=== PATIENT | male | born 1950 | race Caucasian/White ===

== ENCOUNTER 2019-09-16 09:47 | Day surgery (SDC) | payer OTHER ==
[~2019-09-16] VITALS: Ht 175.3 cm; Wt 107.0 kg
[~2019-09-16 09:47] MED LIST: CARV25 PO; FLUO10 PO; GABA300 PO; GLIP5 PO; IBUP800 PO; INSULANPEN SC; METF500 PO; NITR.4SL SL; OMEPRAZOLE20 MG PO; TERA5 PO; TRULICITY1.5 MG/0.5 SC; ZESTORETIC 20-1 EACH PO; Zocor20 MG PO
--- NOTE | 2019-09-16 11:27 | NUR ---
Pt with two rings removed by patient and given to his daughter Kassandra.
--- NOTE | 2019-09-16 15:30 | NUR ---
PT AMBULATES TO AND FROM RESTROOM WITHOUT DIFF. R RADIAL SITE REMAINS CLEAR. VSS. NADN. CALL LIGHT WITHIN REACH.
--- NOTE | 2019-09-16 15:34 | NUR ---
PT AND FAMILY VERBALIZES UNDERSTANDING WRITTEN AND VERBAL ORDERS. VSS. NADN. PT DENIES NEEDS.
--- NOTE | 2019-09-16 16:15 | NUR ---
ATTEMPTED TO DEFLATE AIR FROM TR BAND, HOWEVER BLED. REINFLATED TR BAND. NO BLEEDING OR HEMATOMA NOTED. VSS. FRIAS. FULL REPORT TO COLLEEN KENDRICK RN TO ASSUME CARE.
--- NOTE | 2019-09-16 17:49 | NUR ---
DISCHARGE INSTRUCTIONS RE-ENFORCED. PT AND FAMILY BOTH VERBALIZE UNDERSTANDING. CLOTH DOT PLACED RIGHT RADIAL SITE. SITE WITHOUT BLEEDING, HEMATOMA, AND IS NON-TENDER. SALINE LOCK TAKEN OUT WITH CATHETER INTACT. PT TO PRIVATE VEHICLE PER W/C WITH ONE STAFF.
== END 2019-09-16 17:45 | disposition home or self-care (01) ==
LOC: MHTC 09:47
DX: I25.10 Atherosclerotic heart disease of native coronary artery without angina pectoris (principal); I10 Essential (primary) hypertension; E78.5 Hyperlipidemia, unspecified; E11.9 Type 2 diabetes mellitus without complications; K21.9 Gastro-esophageal reflux disease without esophagitis; F32.9 Major depressive disorder, single episode, unspecified; M54.30 Sciatica, unspecified side; F43.10 Post-traumatic stress disorder, unspecified; E66.9 Obesity, unspecified; Z68.34 Body mass index [BMI] 34.0-34.9, adult; Z88.8 Allergy status to other drugs, medicaments and biological substances; Z79.84 Long term (current) use of oral hypoglycemic drugs; Z79.899 Other long term (current) drug therapy; Z87.891 Personal history of nicotine dependence
CPT/HCPCS: 76937; 82947; 93454; 99152; C1769; C1894; J1644; J2250; J3010; J7030; Q9967

== ENCOUNTER 2024-11-17 12:45 | Emergency (ER) | payer OTHER ==
[~2024-11-17] VITALS: Ht 172.7 cm; Wt 90.7 kg
[2024-11-17] MEDS ORDERED: DILT120 PO (13:04)
[2024-11-17 13:46] LABS: BASOPHILS ABSOLUTE AUTO 0.04 K/mm3 (0.00-0.23); BASOPHILS PERCENT AUTO 1 % (0-2); EOSINOPHILS ABSOLUTE AUTO 0.41 K/mm3 (0.00-0.68); EOSINOPHILS PERCENT AUTO 5 % (0-6); Hemoglobin 11.8 g/dL (13.5-17.5); IMMATURE GRAN ABSOLUTE AUTO 0.02 K/mm3 (0.00-0.10); IMMATURE GRAN PERCENT AUTO 0 % (0-1); LYMPHOCYTES PERCENT AUTO 39 % (21-46); MONOCYTES ABSOLUTE AUTO 0.54 K/mm3 (0.16-1.47); MONOCYTES PERCENT AUTO 6 % (4-13); Mean Corpuscular HGB 31.4 pg (26.0-34.0); Mean Corpuscular HGB Conc 35.8 g/dL (31.5-36.5); Mean Corpuscular Volume 88 fL (80-100); Mean Platelet Volume 9.3 fL (9.1-12.4); NEUTROPHILS ABSOLUTE AUTO 4.34 K/mm3 (1.96-9.15); NEUTROPHILS PERCENT AUTO 50 % (41-73); Platelet Count 202 K/mm3 (150-400); RDW Coefficient Variation 11.9 % (11.7-14.2); RDW Standard Deviation 38.3 fL (35.1-46.3); Red Blood Cell Count 3.76 M/mm3 (4.30-5.90); White Blood Cell Count 8.75 K/mm3 (4.00-11.30)
[2024-11-17 14:09] LABS: Albumin, Blood 3.4 g/dL (3.4-5.0); Bilirubin, Total 0.4 mg/dL (0.1-1.0); Bun/Creatinine Ratio 12.4 (12.0-20.0); Calcium, Blood 9.6 mg/dL (8.5-10.1); Creatinine, Blood 1.05 mg/dL (0.60-1.20); Globulin, Blood 3.3 g/dL (2.2-4.0); Total Protein, Blood 6.7 g/dL (6.4-8.2)
[2024-11-17] MEDS ORDERED: Potassium Chloride 20 MEQ/15 ML UDC PO ONE (15:25)
[2024-11-17] MEDS ORDERED: Ondansetron HCl 2 MG / ML 2ML Vial IV ONE (15:25)
[2024-11-17 16:20] VITALS: BP 118/71
== END 2024-11-17 16:25 | disposition home or self-care (01) ==
LOC: ER 12:45
PROVIDERS: Emergency Medicine
DX: R55 Syncope and collapse (principal); I10 Essential (primary) hypertension; E11.40 Type 2 diabetes mellitus with diabetic neuropathy, unspecified; K21.9 Gastro-esophageal reflux disease without esophagitis; Z88.8 Allergy status to other drugs, medicaments and biological substances; Z79.84 Long term (current) use of oral hypoglycemic drugs; Z79.4 Long term (current) use of insulin; Z79.899 Other long term (current) drug therapy; Z87.891 Personal history of nicotine dependence
CPT/HCPCS: 80053; 85025; 93005; 93010; 99284-25; A9270; J2405

== ENCOUNTER 2024-12-08 18:13 | Emergency (ER) | payer OTHER ==
[~2024-12-08] VITALS: Ht 172.7 cm; Wt 95.2 kg
[~2024-12-08 18:13] MED LIST changes: +DILT120 PO
[2024-12-08 18:54] LABS: BASOPHILS ABSOLUTE AUTO 0.03 K/mm3 (0.00-0.23); BASOPHILS PERCENT AUTO 0 % (0-2); EOSINOPHILS ABSOLUTE AUTO 0.67 K/mm3 (0.00-0.68); EOSINOPHILS PERCENT AUTO 7 % (0-6); Hematocrit 34.8 % (37.0-53.0); Hemoglobin 12.3 g/dL (13.5-17.5); IMMATURE GRAN ABSOLUTE AUTO 0.03 K/mm3 (0.00-0.10); IMMATURE GRAN PERCENT AUTO 0 % (0-1); LYMPHOCYTES ABSOLUTE AUTO 4.27 K/mm3 (0.84-5.20); LYMPHOCYTES PERCENT AUTO 43 % (21-46); MONOCYTES ABSOLUTE AUTO 0.66 K/mm3 (0.16-1.47); MONOCYTES PERCENT AUTO 7 % (4-13); Mean Corpuscular HGB 31.5 pg (26.0-34.0); Mean Corpuscular HGB Conc 35.3 g/dL (31.5-36.5); Mean Corpuscular Volume 89 fL (80-100); Mean Platelet Volume 8.6 fL (9.1-12.4); NEUTROPHILS ABSOLUTE AUTO 4.28 K/mm3 (1.96-9.15); NEUTROPHILS PERCENT AUTO 43 % (41-73); Platelet Count 225 K/mm3 (150-400); RDW Coefficient Variation 12.3 % (11.7-14.2); RDW Standard Deviation 39.5 fL (35.1-46.3); White Blood Cell Count 9.94 K/mm3 (4.00-11.30)
[2024-12-08 19:10] LABS: Albumin, Blood 3.3 g/dL (3.4-5.0); Albumin/Globulin Ratio 1.1 (0.8-1.8); Bilirubin, Total 0.3 mg/dL (0.1-1.0); Bun/Creatinine Ratio 14.4 (12.0-20.0); Calcium, Blood 9.7 mg/dL (8.5-10.1); Creatinine, Blood 1.11 mg/dL (0.60-1.20); Globulin, Blood 3.1 g/dL (2.2-4.0); Potassium, Blood 3.6 mmol/L (3.5-5.5); Total Protein, Blood 6.4 g/dL (6.4-8.2)
[2024-12-08] MEDS ORDERED: INSULANI SC (19:13)
[2024-12-08] MEDS ORDERED: PANT40 (19:15)
[2024-12-08] MEDS ORDERED: CLOP75 PO (19:16)
[2024-12-08 21:27] VITALS: BP 116/66
== END 2024-12-08 21:26 | disposition home or self-care (01) ==
LOC: ER 18:13
PROVIDERS: Student in an Organized Health Care Education/Training Program
DX: R55 Syncope and collapse (principal); Z88.5 Allergy status to narcotic agent; Z79.4 Long term (current) use of insulin; Z79.84 Long term (current) use of oral hypoglycemic drugs; Z79.899 Other long term (current) drug therapy; Z87.891 Personal history of nicotine dependence
CPT/HCPCS: 70450; 72125; 80053; 85025; 93005; 93010; 99284-25

== ENCOUNTER 2025-09-26 21:04 | Emergency (ER) | payer OTHER ==
[~2025-09-26] VITALS: Ht 172.7 cm; Wt 104.3 kg
[~2025-09-26 21:04] MED LIST changes: +CLOP75 PO; +INSULANI SC; +PANT40
[2025-09-26] MEDS ORDERED: Ondansetron HCl 2 MG / ML 2ML Vial IV ONE (21:40)
[2025-09-26 22:03] LABS: BASOPHILS ABSOLUTE AUTO 0.07 K/mm3 (0.00-0.23); BASOPHILS PERCENT AUTO 1 % (0-2); EOSINOPHILS ABSOLUTE AUTO 0.20 K/mm3 (0.00-0.68); EOSINOPHILS PERCENT AUTO 3 % (0-6); Hematocrit 38.7 % (37.0-53.0); Hemoglobin 13.6 g/dL (13.5-17.5); IMMATURE GRAN ABSOLUTE AUTO 0.01 K/mm3 (0.00-0.10); IMMATURE GRAN PERCENT AUTO 0 % (0-1); LYMPHOCYTES ABSOLUTE AUTO 1.82 K/mm3 (0.84-5.20); LYMPHOCYTES PERCENT AUTO 25 % (21-46); MONOCYTES ABSOLUTE AUTO 0.31 K/mm3 (0.16-1.47); MONOCYTES PERCENT AUTO 4 % (4-13); Mean Corpuscular HGB Conc 35.1 g/dL (31.5-36.5); Mean Corpuscular Volume 89 fL (80-100); NEUTROPHILS ABSOLUTE AUTO 4.79 K/mm3 (1.96-9.15); NEUTROPHILS PERCENT AUTO 67 % (41-73); NRBC ABSOLUTE 0.00 K/mm3 (0.00-0.02); NRBC Auto 0.0 /100 WBC (0.0-0.2); Platelet Count 216 K/mm3 (150-400); RDW Coefficient Variation 11.8 % (11.7-14.2); RDW Standard Deviation 38.3 fL (35.1-46.3)
[2025-09-26 22:11] LABS: Source, Urine Clean Catch
[2025-09-26 22:14] LABS: Bilirubin, Urine Neg (Neg); Glucose Qualitative, Urine 4+ (Neg); Ketones, Urine Neg (Neg); Leukocyte Esterase, Urine 1+ (Neg); Protein, Urine Neg (Neg); Specific Gravity, Urine 1.010 (1.003-1.022); Urobilinogen, Urine NORM (Normal)
[2025-09-26] MEDS ORDERED: Crestor40 MG PO (22:20)
[2025-09-26] MEDS ORDERED: DULO60 PO (22:21)
[2025-09-26] MEDS ORDERED: PIOG15 PO (22:21)
[2025-09-26] MEDS ORDERED: ERGO400 PO (22:21)
[2025-09-26 22:22] LABS: Color, Urine Yellow (P-Yellow)
[2025-09-26 22:24] LABS: Red Blood Cells, Urine Not Seen /hpf (0-2)
[2025-09-26 22:41] LABS: Magnesium, Blood 1.7 mg/dL (1.6-2.4); Thyroid Stimulating Hormone 0.419 uIU/mL (0.360-4.800)
[2025-09-26 22:49] LABS: Alanine Aminotransfer (ALT/SGP 34.0 U/L (12-78); Albumin, Blood 3.6 g/dL (3.4-5.0); Albumin/Globulin Ratio 1.0 (0.8-1.8); Anion Gap 11.0 mmol/L (3-11); Aspartate Aminotrans (AST/SGOT 22.0 U/L (12-37); Bilirubin, Total 0.4 mg/dL (0.1-1.0); Blood Urea Nitrogen 22.0 mg/dL (8-24); CO2, Blood 27.0 mmol/L (21-32); Calcium, Blood 9.7 mg/dL (8.5-10.1); Chloride, Blood 91.0 mmol/L (98-108); Creatinine, Blood 0.97 mg/dL (0.60-1.20); Globulin, Blood 3.6 g/dL (2.2-4.0); Glucose, Blood 678.0 mg/dL (70-99); Phosphorus, Blood 3.4 mg/dL (2.5-4.9); Potassium, Blood 5.1 mmol/L (3.5-5.5); Sodium, Blood 124.0 mmol/L (136-145); Total Protein, Blood 7.2 g/dL (6.4-8.2)
[2025-09-26] MEDS ORDERED: NS 1,000 ML IV SCH (23:30)
[2025-09-26] MEDS ORDERED: Insulin Regular 100 Unit/ML 1ML Dose IV ONE (23:30)
[2025-09-27 00:07] LABS: pH Blood Venous 7.42 (7.34-7.37)
[2025-09-27] MEDS ORDERED: Insulin Human Regular 100 UNIT in NS 100 ML IV SCH (00:50)
[2025-09-27 03:00] VITALS: BP 127/61
[2025-09-27 03:13] LABS: Alanine Aminotransfer (ALT/SGP 29.0 U/L (12-78); Albumin, Blood 3.3 g/dL (3.4-5.0); Albumin/Globulin Ratio 1.0 (0.8-1.8); Anion Gap 10.0 mmol/L (3-11); Aspartate Aminotrans (AST/SGOT 19.0 U/L (12-37); Bilirubin, Total 0.1 mg/dL (0.1-1.0); Blood Urea Nitrogen 23.0 mg/dL (8-24); CO2, Blood 29.0 mmol/L (21-32); Calcium, Blood 9.3 mg/dL (8.5-10.1); Chloride, Blood 96.0 mmol/L (98-108); Creatinine, Blood 0.9 mg/dL (0.60-1.20); Globulin, Blood 3.4 g/dL (2.2-4.0); Glucose, Blood 405.0 mg/dL (70-99); Potassium, Blood 4.7 mmol/L (3.5-5.5); Sodium, Blood 130.0 mmol/L (136-145); Total Protein, Blood 6.7 g/dL (6.4-8.2)
== END 2025-09-27 03:45 | disposition home or self-care (01) ==
LOC: ER 21:04
PROVIDERS: Emergency Medicine; Student in an Organized Health Care Education/Training Program
DX: E11.65 Type 2 diabetes mellitus with hyperglycemia (principal); K21.9 Gastro-esophageal reflux disease without esophagitis; I10 Essential (primary) hypertension; E11.40 Type 2 diabetes mellitus with diabetic neuropathy, unspecified; E78.5 Hyperlipidemia, unspecified; Z87.891 Personal history of nicotine dependence; Z79.02 Long term (current) use of antithrombotics/antiplatelets; Z79.899 Other long term (current) drug therapy; Z79.4 Long term (current) use of insulin; Z79.84 Long term (current) use of oral hypoglycemic drugs; Z88.6 Allergy status to analgesic agent
CPT/HCPCS: 70450; 71046; 74177; 80053; 81001; 82010; 82803; 82947; 83605; 83690; 83735; 83880; 84100; 84443; 84484; 85025; 87086; 93005; 93010; 96374-59; 99285-25; J1815; J2405; J7030; Q9967